=== PATIENT | male | born 1990 | race Caucasian/White ===

== ENCOUNTER 2017-12-31 15:13 | Emergency (ER) | payer OTHER ==
[~2017-12-31] VITALS: Ht 175.3 cm; Wt 72.6 kg
[2017-12-31] MEDS ORDERED: WELLBUTRIN 100100 MG PO (15:21)
[2017-12-31] MEDS ORDERED: ADDERALL 30 MG30 MG PO (15:22)
[2017-12-31] MEDS ORDERED: ULTRAM 50MG TAB50 MG PO (16:10)
[2017-12-31] MEDS ORDERED: CLEOCIN HCL150 MG PO (16:10)
[2017-12-31 16:42] VITALS: BP 102/66
== END 2017-12-31 16:20 | disposition home or self-care (01) ==
LOC: ER 15:13
DX: K08.89 Other specified disorders of teeth and supporting structures (principal); M54.5 Low back pain; R51 Headache; F17.210 Nicotine dependence, cigarettes, uncomplicated; Z88.0 Allergy status to penicillin; Z88.8 Allergy status to other drugs, medicaments and biological substances